=== PATIENT | female | born 1970 ===

== ENCOUNTER 2019-05-18 10:07 | Emergency (ER) | payer SELFPAY ==
[2019-05-18 10:29] VITALS: BP 157/93
[2019-05-18] MEDS ORDERED: Ketorolac INJ* 30 MG/ML 1 ML VIAL IM ONE (10:57)
--- NOTE | 2019-05-18 11:00 | UC ---
Back Pain HPI - HPI Summary HPI Summary: 49-year-old woman comes in with a chief complaint of low back pain. Proximate 2 weeks ago the patient was bending over had sudden onset of low back pain. It does radiate into the buttocks but not down the legs. No weakness numbness no difficulty controlling urine or bowels. Pain is worse with twisting turning bending. It's better laying flat. She took ibuprofen 400 mg once and that did help. No anterior abdominal pain no complaint of any urinary symptoms. - History of Current Complaint Chief Complaint: UCBackPain Stated Complaint: LOWER BACK PAIN Time Seen by Provider: 05/18/19 10:41 Pain Intensity: 8 - Allergies/Home Medications Allergies/Adverse Reactions: Allergies Allergy/AdvReac Type Severity Reaction Status Date / Time amoxicillin Allergy Diarrhea Verified 05/18/19 10:23 Home Medications: Home Medications Panadol 05/18/19 [History] PMH/Surg Hx/FS Hx/Imm Hx Previously Healthy: Yes - Surgical History Surgical History: Yes Surgery Procedure, Year, and Place: HISTERECTOMY 2014 - Family History Known Family History: Positive: Non-Contributory - Social History Alcohol Use: None Substance Use Type: None Smoking Status (MU): Never Smoked Tobacco Review of Systems All Other Systems Reviewed And Are Negative: Yes Constitutional: Positive: Negative Skin: Positive: Negative Eyes: Positive: Negative ENT: Positive: Negative Respiratory: Positive: Negative Cardiovascular: Positive: Negative Gastrointestinal: Positive: Negative Genitourinary: Positive: Negative Motor: Positive: Other - SEE HPI Neurovascular: Positive: Negative Musculoskeletal: Positive: Other: - SEE HPI Neurological: Positive: Negative Psychological: Positive: Negative Is Patient Immunocompromised?: No Physical Exam Triage Information Reviewed: Yes Appearance: Well-Appearing, Well-Nourished, Pain Distress - WITH ROM Vital Signs: Initial Vital Signs Temp 97.9 F 05/18/19 10:25 Pulse 105 05/18/19 10:25 Resp 14 05/18/19 10:25 BP 157/93 05/18/19 10:25 Pulse Ox 100 05/18/19 10:25 Vital Signs Reviewed: Yes Eye Exam: Normal Eyes: Positive: Conjunctiva Clear Neck: Positive: Supple Respiratory: Positive: Lungs clear, Normal breath sounds, No respiratory distress Musculoskeletal: Positive: Strength Intact, Other: - Patient is tender to palpation lower lumbar spine into the sacrum. Legs have full range of motion. Patient declined a seated exam due to pain with sitting therefore I did not check reflexes. No sensation deficits. Strength 5 out of 5. Neurological: Positive: Alert, Muscle Tone Normal Psychological: Positive: Age Appropriate Behavior Skin Exam: Normal Back Pain Course/Dx - Course Course Of Treatment: Patient was given Toradol 30 mg IM in clinic. I recommended further nonsteroidal anti-inflammatory treatment with ibuprofen 600 mg every 6 hours as needed. Also can use [id number] lidocaine patches. Wrote a prescription for Flexeril to be used as needed. Also gave her information for stretching and strengthening of her back. Patient is to follow-up with her primary care doctor or sports medicine if not improved or return here as needed. There is no neurologic deficit on examination today. - Differential Dx/Diagnosis Provider Diagnosis: Low back pain Discharge - Sign-Out/Discharge Documenting (check all that apply): Patient Departure All imaging exams completed and their final reports reviewed: No Studies - Discharge Plan Condition: Stable Disposition: HOME Prescriptions: Cyclobenzaprine TAB* [Flexeril 10 MG TAB*] 10 mg PO TID PRN #15 tab MDD 3 PRN Reason: Pain - Back Patient Education Materials: Acute Low Back Pain (ED), Lower Back Exercises (ED ) Referrals: [facility] [Provider Group] Additional Instructions: FOLLOW UP WITH YOUR PRIMARY CARE DOCTOR OR SPORTS MEDICINE IF NOT COMPLETELY IMPROVED. TAKE IBUPROFEN 600MG EVERY 6 HOURS NEEDED. USE OVER THE COUNTER LIDOCAINE PATCHES DIRECTED NEEDED. GET RECHECKED SOONER IF YOUR CONDITION WORSENS; PAIN, WEAKNESS, NUMBNESS, DIFFICULTY CONTROLLING BOWEL OR BLADDER OR ANY QUESTIONS OR CONCERNS. - Billing Disposition and Condition Condition: STABLE Disposition: Home
== END 2019-05-18 11:15 | disposition home or self-care (01) ==
LOC: UCEAST 10:07
DX: M54.5 Low back pain (principal)
CPT/HCPCS: 96372; 99202; G0463; J1885